=== PATIENT | female | born 1995 | race American Indian/Alaskan Native ===

== ENCOUNTER 2017-10-10 16:35 | Inpatient (IN) | payer MEDICAID, OTHER ==
[2017-10-10] MEDS ORDERED: NACL 0.9% 1000 ML 1,000 ML IV ONE ×3 (17:02→22:48)
[2017-10-10 17:37] LABS: Basophils % (Auto) 0.3 % (0.0-1.8); Eosinophils % (Auto) 0.3 % (0.0-4.3); Hematocrit 38.9 % (30.3-42.9); Hemoglobin 12.2 gm/dl (10.1-14.3); Lymphocytes # (Auto) 0.6 K/mm3 (1.2-5.4); Lymphocytes % (Auto) 6.6 % (13.4-35.0); Mean Corpuscular HGB Conc 32 % (30-34); Monocytes # (Auto) 0.6 K/mm3 (0.0-0.8); Monocytes % (Auto) 6.4 % (0.0-7.3); Platelet Count 181 K/mm3 (140-440); Red Blood Count 5.58 M/mm3 (3.65-5.03); Red Cell Distribution Width 13.7 % (13.2-15.2)
[2017-10-10 17:53] LABS: Alanine Aminotransferase 10 units/L (7-56); Albumin 3.9 g/dL (3.9-5); BUN/Creatinine Ratio 11; Blood Urea Nitrogen 9 mg/dL (7-17); Calcium 9.3 mg/dL (8.4-10.2); Hemolysis Index 0
[2017-10-10 17:54] LABS: Mean Corpuscular Hemoglobin 22 pg (28-32); Mean Corpuscular Volume 70 fl (79-97)
[2017-10-10 19:01] LABS: Bilirubin,Urine NEG (Negative); Blood,Urine MOD (Negative); Color,Urine Yellow (Yellow); Mucus,Urine FEW /HPF
[2017-10-10 19:04] LABS: WBC,Urine > 182.0 /HPF (0.0-6.0)
[2017-10-10 19:05] LABS: HCG Qualitative,Urine Negative (Negative)
[2017-10-10] MEDS ORDERED: ZOFRAN IV ONE (20:37)
[2017-10-10] MEDS ORDERED: SUBLIMAZE IV ONE (20:37)
[2017-10-10] MEDS ORDERED: HumuLIN R IV ONE (20:40)
[2017-10-10] MEDS ORDERED: ROCEPHIN/NS 1 GM/50 ML 1 GM/50 ML BAG IV ONE (21:00)
--- NOTE | 2017-10-10 21:12 | Emergency Department Report ---
HPI - General Chief Complaint: Abdominal Pain Time Seen by Provider: 10/10/17 20:24 - HPI HPI: The patient is a 22-year-old female with significant history of diabetes mellitus type 1, who presents for evaluation of abdominal pain. The patient reports 3 days of abdominal pain, moderate severity, crampy in quality, radiating to the back, associated with 2 days of nausea, and vomiting, nonbilious, nonbloody emesis. The patient denies fever, neck pain, chest pain, cough, dyspnea, chills, night sweats, diarrhea, blood in the stool, dark tarry stool, genital discharge, inability to pass flatus. ED Past Medical Hx - Past Medical History Hx Diabetes: Yes - Social History Smoking Status: Never Smoker - Medications Home Medications: Home Medications Medication Instructions Recorded Confirmed Last Taken Type Insulin Glargine,Hum.rec.anlog 30 units SQ QHS 10/11/17 10/11/17 Unknown History [Lantus] ED Review of Systems ROS: Stated complaint: DIABETIC Other details as noted in HPI Constitutional: denies: fever ENT: denies: throat or neck pain Respiratory: denies: cough, shortness of breath Cardiovascular: denies: chest pain Endocrine: denies unexplained weight loss or gain Gastrointestinal: reports: abdominal pain, nausea Genitourinary: denies: dysuria Musculoskeletal: denies: leg swelling Skin: denies: rash Neurological: denies: headache Hematological/Lymphatic: denies: easy bleeding or easy bruising Psych: denies sadness or hopelessness Physical Exam - Physical Exam Vital Signs: Vital Signs 10/10/17 10/10/17 16:55 20:42 Temperature 99.2 F 100 F H Pulse Rate 111 H 118 H Respiratory 16 16 Rate Blood Pressure 146/91 Blood Pressure 130/82 [Left] O2 Sat by Pulse 97 100 Oximetry Physical Exam: General: well-nourished, well-developed, no acute distress Head: Normocephalic, atraumatic Eyes: normal sclera ENT: Mucous membranes are pale and dry Neck: No neck stiffness, no cervical adenopathy Respiratory: Breath sounds equal bilaterally, no wheezing, rales, or rhonchi Cardio: S1 and S2 present, no murmurs, rubs, gallops, capillary refill is delayed Abdomen: Normoactive bowel sounds, soft abdomen, generalized tenderness to palpation present, no rigidity, no guarding or rebound tenderness Chest WALL/Back: No tenderness to palpation of the chest wall, positive bilateral CVA tenderness with percussion Musc: No pitting edema Skin: No rash Neuro: no facial drooping, normal speech Psych: Normal affect ED Course Vital Signs 10/10/17 10/10/17 16:55 20:42 Temperature 99.2 F 100 F H Pulse Rate 111 H 118 H Respiratory 16 16 Rate Blood Pressure 146/91 Blood Pressure 130/82 [Left] O2 Sat by Pulse 97 100 Oximetry ED Medical Decision Making - Lab Data Result diagrams: 10/10/17 17:24 10/10/17 17:24 - Medical Decision Making The patient was seen and examined by myself. The patient is placed on a clinical research monitor and continuous pulse ox. On initial evaluation, the patient was found to be in no distress, although with significant tachycardia and fever, temperature 102F. The patient given Tylenol for her fever. Evaluation orders are placed. IV access is established and the patient is given 1 L normal saline fluid bolus and Zofran for nausea, and IV fentanyl for pain. Lab results revealed elevated urinalysis WBC 182, leukocyte esterase positive, consistent with acute urinary tract infection. Labs also reveal Elevated glucose of 327, with elevated anion gap, though with normal bicarbonate and pH level, not consistent with DKA. The patient given IV Rocephin for treatment of her urinary tract infection and suspected pyelonephritis as the patient has bilateral flank pain and fever. The patient is given 2 L of additional normal saline fluid bolus for treatment of her sepsis and dehydration. The patient is given IV insulin for treatment of her hyperglycemia. The patient was reevaluated and found to remain with significant tachycardia despite appropriate fluid resuscitation. The on-call hospitalist service was contacted. They agreed to admit the patient for further treatment and close monitoring. The ED admit order was placed. The patient was admitted in guarded condition. Critical care attestation.: If time is entered above; I have spent that time in minutes in the direct care of this critically ill patient, excluding procedure time. ED Disposition Clinical Impression: Acute generalized abdominal pain, Dehydration, Nausea and vomiting in adult, Acute hyperglycemia, Acute pyelonephritis Sepsis Qualifiers: Sepsis type: sepsis due to unspecified organism Qualified Code(s): A41.9 - Sepsis, unspecified organism Disposition: OP ADMIT IP TO THIS HOSP Is pt being admited?: Yes Does the pt Need Aspirin: Yes Condition: Serious Instructions: Abdominal Pain (ED) Referrals: PRIMARY CARE, [Primary Care Provider] - 3-5 Days Time of Disposition: 21:15
[2017-10-10] MEDS ORDERED: TYLENOL PO ONE (22:28)
[2017-10-11] MEDS ORDERED: D50W (25GM) Syringe IV PRN ×3 (00:05→12:21)
[2017-10-11] MEDS ORDERED: ZOFRAN IV PRN (00:09)
[2017-10-11] MEDS ORDERED: NACL 0.9% 1000 ML 1,000 ML IV SCH (01:00)
--- NOTE | 2017-10-11 01:54 | History and Physical Report ---
CHIEF COMPLAINT: Abdominal pain. HISTORY OF PRESENT ILLNESS: The patient is a 23-year-old female who has type 1 diabetes mellitus, presenting with 3 days of abdominal pain, which is cramping in nature, radiating to the back and associated with nausea, vomiting, and also fever with no chills. No history of cough. There is no history of shortness of breath or chest pain. PAST MEDICAL HISTORY: Pertinent for diabetes mellitus. PAST SURGICAL HISTORY: Unremarkable. FAMILY HISTORY: Noncontributory. SOCIAL HISTORY: The patient does not smoke, does not drink alcohol, and does not use illicit drugs. MEDICATIONS: The patient is on Lantus insulin 30 units subQ at bedtime. ALLERGIES: There are no known drug allergies. REVIEW OF SYSTEMS: CONSTITUTIONAL: Fever is present. No chills, no diaphoresis. HEENT: There is no headache or sore throat. CARDIOVASCULAR: There is no chest pain or orthopnea. RESPIRATORY: There is no shortness of breath or cough. GASTROINTESTINAL: Abdominal pain present. Nausea and vomiting present. No diarrhea. No constipation. NEUROLOGICAL: There is no numbness, no dizziness, no altered mental status. MUSCULOSKELETAL: There is no joint pain or swelling. DERMATOLOGICAL: There is no skin rash or itching. GENITOURINARY: There is no dysuria, hematuria, or flank pain. Rest of system review is normal. PHYSICAL EXAMINATION: GENERAL: At the time of exam, the patient was found to be alert, oriented x3 and not in acute distress. VITAL SIGNS: At the initial time of presentation shows temperature of 99.2 degrees Fahrenheit, pulse of 111, respirations of 16, blood pressure 146/91, O2 sat of 97% on room air. HEENT: Show pupils to be equal, round, reactive to light and accommodation. Extraocular muscles are intact. NECK: Supple with no JVD or carotid bruit. CARDIOVASCULAR: Showed normal first and second heart sounds with no gallops or murmurs. RESPIRATORY: Show good air entry on both sides of the lungs with no abnormal breath sounds. GASTROINTESTINAL: Show abdomen to be full, soft, nontender with no organomegaly or rigidity. NEUROLOGICAL: Shows no focal deficit. MUSCULOSKELETAL: Show no joint swelling or tenderness. DERMATOLOGICAL: Show no skin rash. GENITOURINARY: Showing no costovertebral angle tenderness. PERTINENT LABORATORY AND IMAGING STUDIES: The patient has CBC done with normal white count, normal hemoglobin and normal hematocrit with CBC differential showing elevated neutrophil count of 86.4% with no significant band. The patient's ABG showed normal pH with low pCO2 of 30.4, low pO2 of 71, and O2 sat of 94% and this was done on room air. The patient's chemistry showed low sodium of 131, normal potassium, low chloride of 92.5, normal CO2 of 22 with slightly elevated anion gap of 16.5 with high glucose level of 327. Rest of chemistry was unremarkable. Urinalysis shows yellow color, clear urine with high urine wbc of more than 182. High urine leukocyte esterase in large quantity, and also high urine WBC of 21, positive urine ketone. IMAGING STUDIES: No imaging studies were reported on the patient at this time. DIAGNOSES: 1. Urinary tract infection. 2. Sepsis. 3. Hyperglycemia. PLAN: 1. The patient will be on normal saline at 150 mL an hour. 2. The patient will be on IV ceftriaxone 1 gram daily for treatment of UTI and sepsis. 3. The patient will be on Accu-Chek before meals and at bedtime, followed by moderate dose sliding scale using regular insulin SubQ. 4. The patient will be on IV Zofran 4 mg every 6 hours for nausea and vomiting. The patient will be on Tylenol 650 mg by mouth every 4 hours for fever and headache. 5. The patient will be on heparin 5000 units subQ q.12 hours for DVT prophylaxis. 6. The patient will be on consistent carbohydrate diet. 7. The patient will have basic metabolic panel checked q.4 hours' time. JOB# [id number] OCN/NTS MTDD
[2017-10-11 04:22] LABS: BUN/Creatinine Ratio 10; Blood Urea Nitrogen 9 mg/dL (7-17); Calcium 7.7 mg/dL (8.4-10.2); Hemolysis Index 0
[2017-10-11] MEDS ORDERED: NACL 0.9% 1000 ML 1,000 ML IV ONE (05:10)
[2017-10-11] MEDS ORDERED: HumuLIN R 100 UNITS in NACL 0.9% 99 ML IV SCH ×2 (06:00→13:00)
[2017-10-11 06:17] LABS: BUN/Creatinine Ratio 11; Blood Urea Nitrogen 10 mg/dL (7-17); Calcium 8.2 mg/dL (8.4-10.2); Hemolysis Index 0
[2017-10-11] MEDS ORDERED: HumuLIN R SUB-Q SCH ×2 (07:30→22:00)
[2017-10-11 08:27] LABS: BUN/Creatinine Ratio 11; Blood Urea Nitrogen 9 mg/dL (7-17); Calcium 7.9 mg/dL (8.4-10.2); Hemolysis Index 1
[2017-10-11 10:21] LABS: BUN/Creatinine Ratio 10; Blood Urea Nitrogen 9 mg/dL (7-17); Calcium 8.1 mg/dL (8.4-10.2); Hemolysis Index 0
[2017-10-11] MEDS ORDERED: MAGNESIUM SULFATE 4GM/100ML 4 GM/100 ML BAG IV ONE (11:00)
[2017-10-11] MEDS: D5W/0.45% NACL/KCL 20 MEQ 20 MEQ/1,000 ML BAG IV SCH (11:01)
[2017-10-11] MEDS: HEPARIN SUB-Q SCH ×2 (11:02→23:56)
--- NOTE | 2017-10-11 11:32 | History and Physical Report ---
History of Present Illness Date of examination: 10/11/17 Date of admission: 10/11/17 00:03 Chief complaint: flank pain History of present illness: DKA. The pt will be continued on the DKA pathway until AG has closed and BG have normalized. Cont. IVF hydration and IV insulin. Sepsis. Cont IV Abx and f/u cx and trend lactic acid levels UTI, Right flank pain. Cont IV abx. Check CT A/P. DM type I, uncontrolled. Pt. will be transitioned to her home regimen of Lantus 30 units qhs and Sliding scale during the day once DKA resoved Medications and Allergies Allergies Allergy/AdvReac Type Severity Reaction Status Date / Time No Known Allergies Allergy Unverified 10/10/17 17:02 Home Medications Medication Instructions Recorded Confirmed Last Taken Type Insulin Glargine,Hum.rec.anlog 30 units SQ QHS 10/11/17 10/11/17 Unknown History [Lantus] Active Meds: Active Medications Dextrose (D50w (25gm) Syringe) 0 ml IV PRN PRN PRN Reason: Hypoglycemia Heparin Sodium (Porcine) (Heparin) 5,000 unit SUB-Q Q12HR MACI Last Admin: 10/11/17 11:02 Dose: 5,000 unit Ceftriaxone Sodium (Rocephin/Ns 1 Gm/50 Ml) 1 gm in 50 mls @ 100 mls/hr IV Q24HR MACI; Protocol Sodium Chloride (Nacl 0.9% 1000 Ml) 1,000 mls @ 150 mls/hr IV DIRECT MACI Last Admin: 10/11/17 02:36 Dose: 150 mls/hr Potassium Chloride/Dextrose/Sod Cl (D5w/0.45% Nacl/Kcl 20 Meq) 20 meq in 1,000 mls @ 125 mls/hr IV DIRECT MACI Last Admin: 10/11/17 11:01 Dose: 125 mls/hr Magnesium Sulfate (Magnesium Sulfate 4gm/100ml) 4 gm in 100 mls @ 25 mls/hr IV ONCE ONE Stop: 10/11/17 14:59 Ondansetron HCl (Zofran) 4 mg IV Q6H PRN PRN Reason: Nausea And Vomiting Exam - Constitutional Vitals: Temp Pulse Resp BP Pulse Ox 98.5 F 103 H 16 101/56 99 10/11/17 08:00 10/11/17 05:18 07/16/18 05:18 10/11/17 05:18 10/11/17 05:18 Results - Labs CBC & Chem 7: 10/10/17 17:24 10/11/17 Unknown Labs: Laboratory Last Values WBC 8.7 K/mm3 (4.5-11.0) 10/10/17 17:24 RBC 5.58 M/mm3 (3.65-5.03) H 10/10/17 17:24 Hgb 12.2 gm/dl (10.1-14.3) 10/10/17 17:24 Hct 38.9 % (30.3-42.9) 10/10/17 17:24 MCV 70 fl (79-97) L 10/10/17 17:24 MCH 22 pg (28-32) L 10/10/17 17:24 MCHC 32 % (30-34) 10/10/17 17:24 RDW 13.7 % (13.2-15.2) 10/10/17 17:24 Plt Count 181 K/mm3 (140-440) 10/10/17 17:24 Lymph % (Auto) 6.6 % (13.4-35.0) L 10/10/17 17:24 [place] % (Auto) 6.4 % (0.0-7.3) 10/10/17 17:24 Eos % (Auto) 0.3 % (0.0-4.3) 10/10/17 17:24 Baso % (Auto) 0.3 % (0.0-1.8) 10/10/17 17:24 Lymph # 0.6 K/mm3 (1.2-5.4) L 10/10/17 17:24 [place] # 0.6 K/mm3 (0.0-0.8) 10/10/17 17:24 Eos # 0.0 K/mm3 (0.0-0.4) 10/10/17 17:24 Baso # 0.0 K/mm3 (0.0-0.1) 10/10/17 17:24 Seg Neutrophils % 86.4 % (40.0-70.0) H 10/10/17 17:24 Seg Neutrophils # 7.5 K/mm3 (1.8-7.7) 10/10/17 17:24 POC ABG pH 7.396 (7.35-7.45) 10/10/17 22:14 POC ABG pCO2 30.4 (35-45) L 10/10/17 22:14 POC ABG pO2 71 (80-105) L 10/10/17 22:14 POC ABG HCO3 18.7 10/10/17 22:14 POC ABG Total CO2 20 10/10/17 22:14 POC ABG O2 Sat 94 10/10/17 22:14 POC ABG Base Excess -6 10/10/17 22:14 FiO2 21 % 10/10/17 22:14 Sodium 135 mmol/L (137-145) L 10/11/17 Unknown Potassium 4.4 mmol/L (3.6-5.0) 10/11/17 Unknown Chloride 100.6 mmol/L (98-107) 10/11/17 Unknown Carbon Dioxide 18 mmol/L (22-30) L 10/11/17 Unknown Anion Gap 21 mmol/L 10/11/17 Unknown BUN 9 mg/dL (7-17) 10/11/17 Unknown Creatinine 0.9 mg/dL (0.7-1.2) 10/11/17 Unknown Estimated GFR > 60 ml/min 10/11/17 Unknown BUN/Creatinine Ratio 10 % 10/11/17 Unknown Glucose 349 mg/dL (65-100) H 10/11/17 Unknown POC Glucose 315 (70-105) H 10/11/17 10:11 Lactic Acid 1.60 mmol/L (0.7-2.0) 10/11/17 00:01 Calcium 8.1 mg/dL (8.4-10.2) L 10/11/17 Unknown Phosphorus 3.30 mg/dL (2.5-4.5) 10/11/17 05:38 Magnesium 1.40 mg/dL (1.7-2.3) L 10/11/17 05:38 Total Bilirubin 0.70 mg/dL (0.1-1.2) 10/10/17 17:24 AST 13 units/L (5-40) 10/10/17 17:24 ALT 10 units/L (7-56) 10/10/17 17:24 Alkaline Phosphatase 103 units/L (35-129) 10/10/17 17:24 Total Protein 7.2 g/dL (6.3-8.2) 10/10/17 17:24 Albumin 3.9 g/dL (3.9-5) 10/10/17 17:24 Albumin/Globulin Ratio 1.2 % 10/10/17 17:24 Urine Color Yellow (Yellow) 10/10/17 18:48 Urine Turbidity Clear (Clear) 10/10/17 18:48 Urine pH 6.0 (5.0-7.0) 10/10/17 18:48 Ur Specific [place] 1.014 (1.003-1.030) 10/10/17 18:48 Urine Protein 100 mg/dl mg/dL (Negative) 10/10/17 18:48 Urine Glucose (UA) >=500 mg/dL (Negative) 10/10/17 18:48 Urine Ketones 80 mg/dL (Negative) 10/10/17 18:48 Urine Blood Mod (Negative) 10/10/17 18:48 Urine Nitrite Neg (Negative) 10/10/17 18:48 Urine Bilirubin Neg (Negative) 10/10/17 18:48 Urine Urobilinogen 2.0 mg/dL (<2.0) 10/10/17 18:48 Ur Leukocyte Esterase Lg (Negative) 10/10/17 18:48 Urine WBC (Auto) > 182.0 /HPF (0.0-6.0) H 10/10/17 18:48 Urine RBC (Auto) 21.0 /HPF (0.0-6.0) 10/10/17 18:48 U Epithel Cells (Auto) 1.0 /HPF (0-13.0) 10/10/17 18:48 Urine WBC Clumps 2+ /HPF 10/10/17 18:48 Urine Mucus Few /HPF 10/10/17 18:48 Urine HCG, Qual Negative (Negative) 10/10/17 18:48
[2017-10-11] MEDS: ROCEPHIN/NS 1 GM/50 ML 1 GM/50 ML BAG IV SCH (12:18)
[2017-10-11 14:36] LABS: BUN/Creatinine Ratio 11; Blood Urea Nitrogen 8 mg/dL (7-17); Calcium 8.3 mg/dL (8.4-10.2); Hemolysis Index 0
[2017-10-11 15:11] LABS: BUN/Creatinine Ratio 11; Blood Urea Nitrogen 8 mg/dL (7-17); Calcium 8.3 mg/dL (8.4-10.2); Hemolysis Index 2
[2017-10-11 16:04] LABS: BUN/Creatinine Ratio 12; Blood Urea Nitrogen 7 mg/dL (7-17); Calcium 8.3 mg/dL (8.4-10.2); Hemolysis Index 9
--- NOTE | 2017-10-11 16:32 | Consultation ---
History of Present Illness Consult date: 10/11/17 Requesting physician: SONIA THOMAS Reason for consult: other (DKA) History of present illness: PULMONARY/CCM CONSULT NOTE (Full dictation # [id number]) Please see dictated notes for full details Medications and Allergies Allergies Allergy/AdvReac Type Severity Reaction Status Date / Time No Known Allergies Allergy Unverified 10/10/17 17:02 Home Medications Medication Instructions Recorded Confirmed Last Taken Type Insulin Glargine,Hum.rec.anlog 30 units SQ QHS 10/11/17 10/11/17 Unknown History [Lantus] Diabetic Supplies,Miscell [Enlite 1 each MC TID #1 miscell 10/13/17 Unknown Rx Serter] Insulin NPH/Regular [Novolin 70/30] 30 unit SQ DAILY #3 vial 10/13/17 Unknown Rx Levofloxacin [Levaquin TAB] 500 mg PO QDAY #3 tablet 10/13/17 Unknown Rx Active Meds: Active Medications Dextrose (D50w (25gm) Syringe) 0 ml IV PRN PRN PRN Reason: Hypoglycemia Dextrose (D50w (25gm) Syringe) 0 ml IV PRN PRN PRN Reason: Hypoglycemia Heparin Sodium (Porcine) (Heparin) 5,000 unit SUB-Q Q12HR MACI Last Admin: 10/11/17 11:02 Dose: 5,000 unit Ceftriaxone Sodium (Rocephin/Ns 1 Gm/50 Ml) 1 gm in 50 mls @ 100 mls/hr IV Q24HR MACI; Protocol Last Admin: 10/11/17 12:18 Dose: 100 mls/hr Sodium Chloride (Nacl 0.9% 1000 Ml) 1,000 mls @ 150 mls/hr IV DIRECT MACI Last Admin: 10/11/17 02:36 Dose: 150 mls/hr Potassium Chloride/Dextrose/Sod Cl (D5w/0.45% Nacl/Kcl 20 Meq) 20 meq in 1,000 mls @ 125 mls/hr IV DIRECT MACI Last Admin: 10/11/17 11:01 Dose: 125 mls/hr Insulin Human Regular 100 (units/ Sodium Chloride) 100 mls @ 1 mls/hr IV TITR MACI; Protocol Last Titration: 10/11/17 15:24 Dose: 5 units/hr, 5 mls/hr Ondansetron HCl (Zofran) 4 mg IV Q6H PRN PRN Reason: Nausea And Vomiting Physical Examination Vital signs: Vital Signs Temp Pulse Resp BP Pulse Ox 99.2 F 111 H 16 146/91 97 10/10/17 16:55 10/10/17 16:55 10/10/17 16:55 10/10/17 16:55 10/10/17 16:55 Results - Laboratory Findings CBC and BMP: 10/12/17 09:57 10/13/17 05:41 ABG POC ABG pH 7.396 (7.35-7.45) 10/10/17 22:14 POC ABG pCO2 30.4 (35-45) L 10/10/17 22:14 POC ABG pO2 71 (80-105) L 10/10/17 22:14 POC ABG HCO3 18.7 10/10/17 22:14 POC ABG Total CO2 20 10/10/17 22:14 POC ABG O2 Sat 94 10/10/17 22:14 Abnormal lab findings: Abnormal Labs 10/10/17 10/10/17 10/10/17 17:02 17:24 17:24 RBC 5.58 H MCV 70 L MCH 22 L Lymph % (Auto) 6.6 L Lymph # 0.6 L Seg Neutrophils % 86.4 H POC ABG pCO2 POC ABG pO2 Sodium 131 L Chloride 92.5 L Carbon Dioxide Creatinine Glucose 327 H POC Glucose 279 H Calcium Magnesium Urine WBC (Auto) 10/10/17 10/10/17 10/10/17 18:48 21:01 22:14 RBC MCV MCH Lymph % (Auto) Lymph # Seg Neutrophils % POC ABG pCO2 30.4 L POC ABG pO2 71 L Sodium Chloride Carbon Dioxide Creatinine Glucose POC Glucose 322 H Calcium Magnesium Urine WBC (Auto) > 182.0 H 10/10/17 10/11/17 10/11/17 22:46 03:53 05:38 RBC MCV MCH Lymph % (Auto) Lymph # Seg Neutrophils % POC ABG pCO2 POC ABG pO2 Sodium 136 L Chloride Carbon Dioxide 18 L Creatinine Glucose 420 H POC Glucose 256 H Calcium 7.7 L D Magnesium 1.40 L Urine WBC (Auto) 10/11/17 10/11/17 10/11/17 05:38 07:45 10:11 RBC MCV MCH Lymph % (Auto) Lymph # Seg Neutrophils % POC ABG pCO2 POC ABG pO2 Sodium 133 L 135 L Chloride 97.2 L Carbon Dioxide 17 L 16 L Creatinine Glucose 426 H 382 H POC Glucose 315 H Calcium 8.2 L 7.9 L Magnesium Urine WBC (Auto) 10/11/17 10/11/17 10/11/17 13:57 13:57 14:04 RBC MCV MCH Lymph % (Auto) Lymph # Seg Neutrophils % POC ABG pCO2 POC ABG pO2 Sodium Chloride Carbon Dioxide 19 L 18 L Creatinine Glucose 287 H 284 H POC Glucose Calcium 8.3 L 8.3 L Magnesium 1.60 L Urine WBC (Auto) 10/11/17 10/11/17 15:15 Unknown RBC MCV MCH Lymph % (Auto) Lymph # Seg Neutrophils % POC ABG pCO2 POC ABG pO2 Sodium 135 L Chloride Carbon Dioxide 18 L 18 L Creatinine 0.6 L Glucose 247 H 349 H POC Glucose Calcium 8.3 L 8.1 L Magnesium Urine WBC (Auto)
--- NOTE | 2017-10-11 18:48 | Cat Scan Report ---
FINAL REPORT EXAM: CT ABDOMEN PELVIS WO CON HISTORY: UTI, Right flank pain TECHNIQUE: Unenhanced stone protocol CT of the abdomen and pelvis at 2.5 millimeter axial increments. Coronal and sagittal reconstruction was also performed. PRIORS: None. FINDINGS: There is no evidence for renal calculi or hydronephrosis. No evidence for ureteral or bladder calculus is seen. No evidence for renal or bladder mass is noted. 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 Otherwise, within the limits of a noncontrast exam, the liver, spleen, pancreas, gallbladder, and adrenal glands are unremarkable. No evidence for retroperitoneal or pelvic lymphadenopathy is seen. The bowel loops have normal caliber. No fluid collection, inflammatory change, or free air is seen within the abdomen or pelvis. The appendix is normal. Within the pelvis, the uterus is normal. Images through the upper abdomen include the lung bases which are expanded and clear. Bony structures show no focal abnormalities. IMPRESSION: 1. No evidence for renal calculi or renal obstruction. 2. 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
[2017-10-11 20:46] LABS: BUN/Creatinine Ratio 12; Blood Urea Nitrogen 7 mg/dL (7-17); Calcium 8.5 mg/dL (8.4-10.2); Hemolysis Index 87
[2017-10-11 21:08] LABS: BUN/Creatinine Ratio 9; Blood Urea Nitrogen 6 mg/dL (7-17); Calcium 8.8 mg/dL (8.4-10.2); Hemolysis Index 10
[2017-10-11] MEDS ORDERED: TYLENOL PO PRN (22:08)
[2017-10-11] MEDS: PERCOCET 5/325 PO PRN (23:55)
[2017-10-12] MEDS: D5W/0.45% NACL/KCL 20 MEQ 20 MEQ/1,000 ML BAG IV SCH ×3 (00:05→22:15)
[2017-10-12] MEDS: PERCOCET 5/325 PO PRN ×3 (07:45→23:37)
[2017-10-12 08:13] LABS: BUN/Creatinine Ratio 7; Blood Urea Nitrogen 4 mg/dL (7-17); Calcium 8.5 mg/dL (8.4-10.2); Hemolysis Index 66
[2017-10-12] MEDS: HEPARIN SUB-Q SCH ×2 (09:50→22:16)
[2017-10-12] MEDS: ROCEPHIN/NS 1 GM/50 ML 1 GM/50 ML BAG IV SCH (09:58)
[2017-10-12 11:11] LABS: Basophils % (Auto) 0.5 % (0.0-1.8); Eosinophils # (Auto) 0.1 K/mm3 (0.0-0.4); Eosinophils % (Auto) 1.8 % (0.0-4.3); Hematocrit 32.9 % (30.3-42.9); Hemoglobin 10.4 gm/dl (10.1-14.3); Lymphocytes # (Auto) 0.9 K/mm3 (1.2-5.4); Lymphocytes % (Auto) 13.7 % (13.4-35.0); Mean Corpuscular HGB Conc 32 % (30-34); Monocytes # (Auto) 0.7 K/mm3 (0.0-0.8); Monocytes % (Auto) 10.2 % (0.0-7.3); Platelet Count 156 K/mm3 (140-440); Red Blood Count 4.76 M/mm3 (3.65-5.03); Red Cell Distribution Width 13.9 % (13.2-15.2)
[2017-10-12 11:14] LABS: Mean Corpuscular Hemoglobin 22 pg (28-32); Mean Corpuscular Volume 69 fl (79-97)
[2017-10-12 11:27] LABS: BUN/Creatinine Ratio 8; Blood Urea Nitrogen 4 mg/dL (7-17); Calcium 8.5 mg/dL (8.4-10.2); Hemolysis Index 15
[2017-10-12] MEDS ORDERED: D50W (25GM) Syringe IV PRN (13:27)
--- NOTE | 2017-10-12 13:36 | Progress Note ---
Assessment and Plan Assessment and plan: 22-year-old -[place] female with past medical history significant for insulin-dependent diabetes mellitus presented to the emergency department for the complaints of abdominal cough, nausea, vomiting, and fever. Patient has been run out of her regular insulin. He was admitted to ICU for the management of DKA. Patient was managed according to DKA protocol and resolved. Currently patient is on high-dose sliding scale insulin and home dose of 30 units of Lantus. Patient was treated with IV fluids. Patient started on ADA diet Patient was septic and admitted to UTI and is being treated with IV ceftriaxone. Fever resolved. Patient is on heparin for DVT prophylaxis. Disposition -Transfer to the medical floor. - Possible DC tomorrow. History Interval history: Patient was seen and evaluated this morning, patient didn't have any complaints. Patient was alert and oriented Hospitalist Physical - Physical exam Narrative exam: Not in cardiopulmonary distress. The patient is obese. Vital signs as documented. Head exam is unremarkable. No scleral icterus . Neck is without jugular venous distension, thyromegaly, or carotid bruits. Lungs are clear to auscultation. Cardiac exam reveals regular rate and Rhythm. First and second heart sounds normal. No murmurs, rubs or gallops. Abdominal exam reveals normal bowel sounds, no masses, no organomegaly and no aortic enlargement. Extremities are nonedematous and both femoral and pedal pulses are normal. [employer]: Alert and oriented 3. No focal weakness. - Constitutional Vitals: Temp Pulse Resp BP Pulse Ox 99.4 F 88 10 L 123/59 99 10/12/17 08:00 10/12/17 10:00 10/12/17 10:00 10/12/17 10:00 10/12/17 10:00 Results - Labs CBC & Chem 7: 10/12/17 09:57 10/12/17 09:57 Labs: Laboratory Last Values WBC 6.6 K/mm3 (4.5-11.0) 10/12/17 09:57 RBC 4.76 M/mm3 (3.65-5.03) 10/12/17 09:57 Hgb 10.4 gm/dl (10.1-14.3) 10/12/17 09:57 Hct 32.9 % (30.3-42.9) D 10/12/17 09:57 MCV 69 fl (79-97) L 10/12/17 09:57 MCH 22 pg (28-32) L 10/12/17 09:57 MCHC 32 % (30-34) 10/12/17 09:57 RDW 13.9 % (13.2-15.2) 10/12/17 09:57 Plt Count 156 K/mm3 (140-440) 10/12/17 09:57 Lymph % (Auto) 13.7 % (13.4-35.0) 10/12/17 09:57 [place] % (Auto) 10.2 % (0.0-7.3) H 10/12/17 09:57 Eos % (Auto) 1.8 % (0.0-4.3) 10/12/17 09:57 Baso % (Auto) 0.5 % (0.0-1.8) 10/12/17 09:57 Lymph # 0.9 K/mm3 (1.2-5.4) L 10/12/17 09:57 [place] # 0.7 K/mm3 (0.0-0.8) 10/12/17 09:57 Eos # 0.1 K/mm3 (0.0-0.4) 10/12/17 09:57 Baso # 0.0 K/mm3 (0.0-0.1) 10/12/17 09:57 Seg Neutrophils % 73.8 % (40.0-70.0) H 10/12/17 09:57 Seg Neutrophils # 4.8 K/mm3 (1.8-7.7) 10/12/17 09:57 POC ABG pH 7.396 (7.35-7.45) 10/10/17 22:14 POC ABG pCO2 30.4 (35-45) L 10/10/17 22:14 POC ABG pO2 71 (80-105) L 10/10/17 22:14 POC ABG HCO3 18.7 10/10/17 22:14 POC ABG Total CO2 20 10/10/17 22:14 POC ABG O2 Sat 94 10/10/17 22:14 POC ABG Base Excess -6 10/10/17 22:14 FiO2 21 % 10/10/17 22:14 Sodium 135 mmol/L (137-145) L 10/12/17 09:57 Potassium 3.7 mmol/L (3.6-5.0) 10/12/17 09:57 Chloride 102.1 mmol/L (98-107) 10/12/17 09:57 Carbon Dioxide 20 mmol/L (22-30) L 10/12/17 09:57 Anion Gap 17 mmol/L 10/12/17 09:57 BUN 4 mg/dL (7-17) L 10/12/17 09:57 Creatinine 0.5 mg/dL (0.7-1.2) L 10/12/17 09:57 Estimated GFR > 60 ml/min 10/12/17 09:57 BUN/Creatinine Ratio 8 % 10/12/17 09:57 Glucose 150 mg/dL (65-100) H 10/12/17 09:57 POC Glucose 139 (70-105) H 10/12/17 12:31 Lactic Acid 1.60 mmol/L (0.7-2.0) 10/11/17 00:01 Calcium 8.5 mg/dL (8.4-10.2) 10/12/17 09:57 Phosphorus 2.50 mg/dL (2.5-4.5) D 10/11/17 13:57 Magnesium 1.60 mg/dL (1.7-2.3) L 10/11/17 13:57 Total Bilirubin 0.70 mg/dL (0.1-1.2) 10/10/17 17:24 AST 13 units/L (5-40) 10/10/17 17:24 ALT 10 units/L (7-56) 10/10/17 17:24 Alkaline Phosphatase 103 units/L (35-129) 10/10/17 17:24 Total Protein 7.2 g/dL (6.3-8.2) 10/10/17 17:24 Albumin 3.9 g/dL (3.9-5) 10/10/17 17:24 Albumin/Globulin Ratio 1.2 % 10/10/17 17:24 Urine Color Yellow (Yellow) 10/10/17 18:48 Urine Turbidity Clear (Clear) 10/10/17 18:48 Urine pH 6.0 (5.0-7.0) 10/10/17 18:48 Ur Specific [place] 1.014 (1.003-1.030) 10/10/17 18:48 Urine Protein 100 mg/dl mg/dL (Negative) 10/10/17 18:48 Urine Glucose (UA) >=500 mg/dL (Negative) 10/10/17 18:48 Urine Ketones 80 mg/dL (Negative) 10/10/17 18:48 Urine Blood Mod (Negative) 10/10/17 18:48 Urine Nitrite Neg (Negative) 10/10/17 18:48 Urine Bilirubin Neg (Negative) 10/10/17 18:48 Urine Urobilinogen 2.0 mg/dL (<2.0) 10/10/17 18:48 Ur Leukocyte Esterase Lg (Negative) 10/10/17 18:48 Urine WBC (Auto) > 182.0 /HPF (0.0-6.0) H 10/10/17 18:48 Urine RBC (Auto) 21.0 /HPF (0.0-6.0) 10/10/17 18:48 U Epithel Cells (Auto) 1.0 /HPF (0-13.0) 10/10/17 18:48 Urine WBC Clumps 2+ /HPF 10/10/17 18:48 Urine Mucus Few /HPF 10/10/17 18:48 Urine HCG, Qual Negative (Negative) 10/10/17 18:48
[2017-10-12 14:34] LABS: BUN/Creatinine Ratio 7; Blood Urea Nitrogen 4 mg/dL (7-17); Calcium 8.4 mg/dL (8.4-10.2); Hemolysis Index 4
[2017-10-12] MEDS: HumaLOG SUB-Q SCH ×2 (16:59→23:37)
[2017-10-12] MEDS ORDERED: LANTUS SUB-Q SCH (22:00)
[2017-10-13 06:52] LABS: BUN/Creatinine Ratio 7; Blood Urea Nitrogen 4 mg/dL (7-17); Calcium 8.2 mg/dL (8.4-10.2); Hemolysis Index 0
[2017-10-13] MEDS: D5W/0.45% NACL/KCL 20 MEQ 20 MEQ/1,000 ML BAG IV SCH (08:26)
[2017-10-13] MEDS: HumaLOG SUB-Q SCH ×3 (08:27→16:30)
[2017-10-13] MEDS: PERCOCET 5/325 PO PRN (08:32)
--- NOTE | 2017-10-13 10:10 | Progress Note ---
Subjective Date of service: 10/13/17 Principal diagnosis: DKA Objective Vital Signs - 12hr 10/12/17 23:21 Temperature 98.1 F Pulse Rate 78 Respiratory 18 Rate Blood Pressure 149/85 O2 Sat by Pulse 100 Oximetry CBC and BMP: 10/12/17 09:57 10/13/17 05:41 ABG, PT/INR, D-dimer: ABG POC ABG pH 7.396 (7.35-7.45) 10/10/17 22:14 POC ABG pCO2 30.4 (35-45) L 10/10/17 22:14 POC ABG pO2 71 (80-105) L 10/10/17 22:14 POC ABG HCO3 18.7 10/10/17 22:14 POC ABG Total CO2 20 10/10/17 22:14 POC ABG O2 Sat 94 10/10/17 22:14 Abnormal lab findings: Abnormal Labs 10/10/17 10/10/17 10/10/17 17:02 17:24 17:24 RBC 5.58 H MCV 70 L MCH 22 L Lymph % (Auto) 6.6 L [place] % (Auto) Lymph # 0.6 L Seg Neutrophils % 86.4 H POC ABG pCO2 POC ABG pO2 Sodium 131 L Potassium Chloride 92.5 L Carbon Dioxide BUN Creatinine Glucose 327 H POC Glucose 279 H Calcium Magnesium Urine WBC (Auto) 10/10/17 10/10/17 10/10/17 18:48 21:01 22:14 RBC MCV MCH Lymph % (Auto) [place] % (Auto) Lymph # Seg Neutrophils % POC ABG pCO2 30.4 L POC ABG pO2 71 L Sodium Potassium Chloride Carbon Dioxide BUN Creatinine Glucose POC Glucose 322 H Calcium Magnesium Urine WBC (Auto) > 182.0 H 10/10/17 10/11/17 10/11/17 22:46 03:53 05:38 RBC MCV MCH Lymph % (Auto) [place] % (Auto) Lymph # Seg Neutrophils % POC ABG pCO2 POC ABG pO2 Sodium 136 L Potassium Chloride Carbon Dioxide 18 L BUN Creatinine Glucose 420 H POC Glucose 256 H Calcium 7.7 L D Magnesium 1.40 L Urine WBC (Auto) 10/11/17 10/11/17 10/11/17 05:38 07:45 10:11 RBC MCV MCH Lymph % (Auto) [place] % (Auto) Lymph # Seg Neutrophils % POC ABG pCO2 POC ABG pO2 Sodium 133 L 135 L Potassium Chloride 97.2 L Carbon Dioxide 17 L 16 L BUN Creatinine Glucose 426 H 382 H POC Glucose 315 H Calcium 8.2 L 7.9 L Magnesium Urine WBC (Auto) 10/11/17 10/11/17 10/11/17 12:17 13:57 13:57 RBC MCV MCH Lymph % (Auto) [place] % (Auto) Lymph # Seg Neutrophils % POC ABG pCO2 POC ABG pO2 Sodium Potassium Chloride Carbon Dioxide 19 L BUN Creatinine Glucose 287 H POC Glucose 331 H Calcium 8.3 L Magnesium 1.60 L Urine WBC (Auto) 10/11/17 10/11/17 10/11/17 14:04 14:20 15:15 RBC MCV MCH Lymph % (Auto) [place] % (Auto) Lymph # Seg Neutrophils % POC ABG pCO2 POC ABG pO2 Sodium Potassium Chloride Carbon Dioxide 18 L 18 L BUN Creatinine 0.6 L Glucose 284 H 247 H POC Glucose 268 H Calcium 8.3 L 8.3 L Magnesium Urine WBC (Auto) 10/11/17 10/11/17 10/11/17 15:26 16:47 18:20 RBC MCV MCH Lymph % (Auto) [place] % (Auto) Lymph # Seg Neutrophils % POC ABG pCO2 POC ABG pO2 Sodium Potassium Chloride Carbon Dioxide BUN Creatinine Glucose POC Glucose 265 H 157 H 135 H Calcium Magnesium Urine WBC (Auto) 10/11/17 10/11/17 10/11/17 18:39 19:44 20:24 RBC MCV MCH Lymph % (Auto) [place] % (Auto) Lymph # Seg Neutrophils % POC ABG pCO2 POC ABG pO2 Sodium Potassium 3.5 L Chloride Carbon Dioxide 19 L 19 L BUN 6 L Creatinine 0.6 L Glucose 125 H 147 H POC Glucose 156 H Calcium Magnesium Urine WBC (Auto) 10/11/17 10/11/17 10/11/17 20:51 22:26 22:59 RBC MCV MCH Lymph % (Auto) [place] % (Auto) Lymph # Seg Neutrophils % POC ABG pCO2 POC ABG pO2 Sodium Potassium Chloride Carbon Dioxide BUN Creatinine Glucose POC Glucose 152 H 176 H 186 H Calcium Magnesium Urine WBC (Auto) 10/11/17 10/12/17 10/12/17 Unknown 00:43 02:13 RBC MCV MCH Lymph % (Auto) [place] % (Auto) Lymph # Seg Neutrophils % POC ABG pCO2 POC ABG pO2 Sodium 135 L Potassium Chloride Carbon Dioxide 18 L BUN Creatinine Glucose 349 H POC Glucose 129 H 155 H Calcium 8.1 L Magnesium Urine WBC (Auto) 10/12/17 10/12/17 10/12/17 04:34 06:09 07:14 RBC MCV MCH Lymph % (Auto) [place] % (Auto) Lymph # Seg Neutrophils % POC ABG pCO2 POC ABG pO2 Sodium 134 L Potassium Chloride Carbon Dioxide 17 L BUN 4 L Creatinine 0.6 L Glucose 114 H POC Glucose 150 H 135 H Calcium Magnesium Urine WBC (Auto) 10/12/17 10/12/17 10/12/17 07:21 08:38 09:49 RBC MCV MCH Lymph % (Auto) [place] % (Auto) Lymph # Seg Neutrophils % POC ABG pCO2 POC ABG pO2 Sodium Potassium Chloride Carbon Dioxide BUN Creatinine Glucose POC Glucose 117 H 145 H 177 H Calcium Magnesium Urine WBC (Auto) 10/12/17 10/12/17 10/12/17 09:57 09:57 10:33 RBC MCV 69 L MCH 22 L Lymph % (Auto) [place] % (Auto) 10.2 H Lymph # 0.9 L Seg Neutrophils % 73.8 H POC ABG pCO2 POC ABG pO2 Sodium 135 L Potassium Chloride Carbon Dioxide 20 L BUN 4 L Creatinine 0.5 L Glucose 150 H POC Glucose 167 H Calcium Magnesium Urine WBC (Auto) 10/12/17 10/12/17 10/12/17 11:37 12:31 13:36 RBC MCV MCH Lymph % (Auto) [place] % (Auto) Lymph # Seg Neutrophils % POC ABG pCO2 POC ABG pO2 Sodium 136 L Potassium Chloride Carbon Dioxide 20 L BUN 4 L Creatinine 0.6 L Glucose 130 H POC Glucose 148 H 139 H Calcium Magnesium Urine WBC (Auto) 10/12/17 10/12/17 10/12/17 14:06 16:48 21:19 RBC MCV MCH Lymph % (Auto) [place] % (Auto) Lymph # Seg Neutrophils % POC ABG pCO2 POC ABG pO2 Sodium Potassium Chloride Carbon Dioxide BUN Creatinine Glucose POC Glucose 144 H 202 H 277 H Calcium Magnesium Urine WBC (Auto) 10/13/17 10/13/17 05:41 08:17 RBC MCV MCH Lymph % (Auto) [place] % (Auto) Lymph # Seg Neutrophils % POC ABG pCO2 POC ABG pO2 Sodium 135 L Potassium Chloride Carbon Dioxide 21 L BUN 4 L Creatinine 0.6 L Glucose 312 H POC Glucose 279 H Calcium 8.2 L Magnesium Urine WBC (Auto)
[2017-10-13] MEDS: ROCEPHIN/NS 1 GM/50 ML 1 GM/50 ML BAG IV SCH (10:20)
[2017-10-13] MEDS: HEPARIN SUB-Q SCH (10:20)
[2017-10-13 11:53] VITALS: BP 133/73
--- NOTE | 2017-10-13 13:36 | Discharge Summary ---
Providers - Providers Date of Admission: 10/11/17 00:03 Date of discharge: 10/13/17 Attending physician: SARA GUZMAN MD 10/11/17 05:10 Consult to Dietitian/Nutrition [CONS] Routine Physician Instructions: Reason For Exam: DKA Reason for Consult: Nutrition Recommendations Reason for Consult: Diet education 10/11/17 05:13 Consult to Physician [CONS] Routine Comment: Consulting Provider: RAFFI CLARKE Physician Instructions: Reason For Exam: DKA IN NEED OF ICU ADMISSION FOR INSULIN DRIP Primary care physician: RECORDAK OPERATOR Hospitalization Reason for admission: DKA, UTI Condition: Stable Pertinent studies: CT abdomen and pelvis; no acute abnormality identified. Hospital course: 22 y/o AAF with past medical history significant for type 1 diabetes mellitus was admitted to the ICU for the management of DKA and sepsis secondary to UTI. Patient moved recently from [place] and she doesn't have her medication with her. Patient was treated according to DKA and sepsis pathway and improved. Patient' s insurance doesn't cover Lantus and patient was discharged with Novolin 70/30. patient was advised to check her blood sugar and diabetic supplies scripts was given. Disposition: DC-01 TO HOME OR SELFCARE Time spent for discharge: 34 minutes - Discharge Diagnoses (1) DKA, type 1 Status: Acute (2) Sepsis Status: Acute Qualifiers: Sepsis type: sepsis due to unspecified organism Qualified Code(s): A41.9 - Sepsis, unspecified organism Core Measure Documentation - Palliative Care Palliative Care/ Comfort Measures: Not Applicable - Core Measures Any of the following diagnoses?: none Exam - Physical Exam Narrative exam: Not in cardiopulmonary distress. The patient is obese. Vital signs as documented. Head exam is unremarkable. No scleral icterus . Neck is without jugular venous distension, thyromegaly, or carotid bruits. Lungs are clear to auscultation. Cardiac exam reveals regular rate and Rhythm. First and second heart sounds normal. No murmurs, rubs or gallops. Abdominal exam reveals normal bowel sounds, no masses, no organomegaly and no aortic enlargement. Extremities are nonedematous and both femoral and pedal pulses are normal. DESIZING MACHINE BACK TENDER: Alert and oriented 3. No focal weakness. - Constitutional Vitals: Temp Pulse Resp BP Pulse Ox 98.0 F 87 20 133/73 99 10/13/17 11:13 10/13/17 11:13 10/13/17 11:13 10/13/17 11:13 10/13/17 11:13 Plan Activity: no restrictions Weight Bearing Status: Full Weight Bearing Diet: low fat, diabetic Follow up with: PRIMARY CARE,MD [Primary Care Provider] - 3-5 Days Prescriptions: Diabetic Supplies,Miscell [Fatimah Robins] 1 each MC TID #1 miscell Insulin NPH/Regular [Novolin 70/30] 30 unit SQ DAILY #3 vial Levofloxacin [Levaquin TAB] 500 mg PO QDAY #3 tablet
--- NOTE | 2017-10-13 21:54 | Consultation ---
PULMONARY/CRITICAL CARE CONSULTATION CONSULTING PHYSICIAN: Dr. Groves. REASON FOR CONSULTATION: Diabetic ketoacidosis. CHIEF COMPLAINT AND HISTORY OF PRESENT ILLNESS: The patient is a young female, 22-year-old, with a history of diabetes type 1, who came to the Emergency Room complaining of abdominal pain. She admits to me she ran out of medications at home. The abdominal pain was of moderate severity, it was crampy, it appeared to radiate to her back. She had been having nausea and vomiting for a couple of days. She denied any hematemesis. She denied any chest pains. She denied any cough or expectoration. She was evaluated in the Emergency Room and essentially found to be with hyperglycemia, uncontrolled diabetes and a suggestion of possible beginnings of diabetic ketoacidosis. She was stabilized and admitted to the regular medical floor; however, her anion gap increased. Her serum sugars continue to increase and ICU admission is requested to the beginning of IV insulin therapy and DKA protocol. When I stopped by to see her, she was lying in bed. She denied any chest pain. Abdominal pain was better. She denied any nausea, vomiting at the time I saw her. With regards to tobacco use/abuse history, she denied any history of tobacco smoking whatsoever. That really was as much of the history of presentation as I have. PAST MEDICAL HISTORY: 1. Diabetes. 2. Obesity. PAST SURGICAL HISTORY: None. MEDICATIONS: She was on at the time I stopped by to see were reviewed. Pertinent medications included the following: She was started on Rocephin at 1 gram IV 24 hours, p.r.n. Tylenol, heparin 5000 units subcutaneously q. 8 hours. She was about to begin the IV insulin drip. She was currently on a sliding scale insulin. Percocet one tablet p.o. q. 4 hours p.r.n. moderate pain. ALLERGIES: No known drug allergies. DIET: Obese lady. Denies significant weight loss or gain in the preceding few weeks to months. FAMILY AND SOCIAL HISTORY: Lives in the community. Denies alcohol, tobacco, or illicit drug use or abuse history whatsoever. Family history otherwise noncontributory. REVIEW OF SYSTEMS: Complete 13-system review of systems obtained. Pertinent positives and/or negatives as in body of history above, otherwise they are noncontributory. PHYSICAL EXAMINATION: VITAL SIGNS: At presentation in the Emergency Room, she had a low grade fever, temperature 99.2 Fahrenheit. Pulse 111, respiratory rate 16, blood pressure 146/91, oxygen sats 97%, inspired oxygen concentration was not recorded at the time. At the time I saw her, she was on room air. GENERAL: Young female, normocephalic, atraumatic, talking to me in full sentences, in mild to moderate nonrespiratory distress. HEAD, EYES, EARS, NOSE AND THROAT: She is anicteric. No conjunctival erythema. Oropharynx is Mallampati #2 oropharynx. Grossly, no palpable lymph nodes in the supraclavicular or submandibular lymph node chains. No gross jugular venous distention. Oropharynx was dry. No thyromegaly. LUNGS: Auscultation of both lung hansen unremarkable. Good bilateral air movement. HEART: Heart sounds 1 and 2 are heard. They were regular in rate and rhythm. No rubs or murmurs. ABDOMEN: Soft, full, bowel sounds are positive, but hypoactive. She was mildly tender diffusely. No palpable hepatosplenomegaly. EXTREMITIES: Without overt digital clubbing, cyanosis, or pedal edema. Dorsalis pedis pulses were palpable bilaterally. NEUROLOGIC: The pupils were equal, round, about 4 mm, reactive to light. Extraocular muscle movements were intact. She moved all 4 extremities spontaneously. The skin was of normal turgor. No cellulitis, no rash. LABORATORY DATA: From my review, white cell count 8700, hemoglobin 12.3, hematocrit 38.9, platelet count was 181. Arterial blood gas showed a pH of 7.40, pCO2 of 30, pO2 of 71 that was on room air. Serum sodium was 131, potassium 4.2, chloride 93, bicarbonate 22, BUN 9, creatinine 0.8, glucose was 327. Liver function tests essentially within normal limits. Lactic acid level was 1.6. However, as said at the time I was seeing her, her most recent blood gas, the serum bicarbonate was down to 16. Magnesium was low at 1.4. MICROBIOLOGY STUDIES: Urine cultures and blood cultures were sent and results were pending. A CT of the abdomen and pelvis was done at presentation. I have reviewed the radiologist's interpretation. Essentially no acute process. 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 ASSESSMENT: 1. Abdominal pain with nausea and vomiting. 2. Uncontrolled diabetes with developing diabetic ketoacidosis. 3. Mild metabolic acidosis. 4. Obesity. 5. History of diabetes. PLAN: We will admit her to the ICU, begin IV insulin therapy via the DKA protocol. I expect her to turn around pretty fast. She will be transitioned to long acting bronchodilators. I did go ahead to genetic counselor improved medication compliance. We will follow the cultures. In the meantime, continue empiric Rocephin therapy for possible UTI. She will be placed on GI and DVT prophylaxis. Flu and pneumonia vaccination will be addressed per protocol. Thank you very much for the consult. We will follow along. We will make further recommendations as picture progresses/becomes clearer. JOB# [id number] MARLI/SIMI
== END 2017-10-13 16:30 | disposition home or self-care (01) | DRG 871 ==
LOC: ED 16:35 → 4A 10-11 00:03 → CC1 10-11 07:28 → 3A 10-12 18:01 → UNDODISIN 10-13 14:15
PROVIDERS: ADMIT Internal Medicine; ATTEND Internal Medicine
PROC: 4A033R1 Measurement of Arterial Saturation, Peripheral, Percutaneous Approach (ICD-10-PCS; principal; 2017-10-10)
DX: A41.9 Sepsis, unspecified organism (principal); E10.10 Type 1 diabetes mellitus with ketoacidosis without coma; E86.0 Dehydration; E66.9 Obesity, unspecified; N10 Acute pyelonephritis; Z79.4 Long term (current) use of insulin; Z68.36 Body mass index [BMI] 36.0-36.9, adult
CPT/HCPCS: 36415; 74176; 80048; 80053; 81001; 81025; 82140; 82803; 82962; 83735; 84100; 85025; 87040; 87076; 87086; 87186; 96361; 96365; 96375; J0696; J1644; J1815; J2405; J3010; J3475; J7030

== ENCOUNTER 2017-12-10 20:13 | Emergency (ER) | payer SELFPAY ==
[2017-12-10 20:45] LABS: Bilirubin,Urine NEG (Negative); Blood,Urine NEG (Negative); Color,Urine Straw (Yellow); Protein,Urine <15 mg/dL mg/dL (Negative); RBC,Urine < 1.0 /HPF (0.0-6.0); Urobilinogen,Urine < 2.0 mg/dL (<2.0); WBC,Urine < 1.0 /HPF (0.0-6.0)
[2017-12-10 21:10] LABS: Basophils % (Auto) 0.5 % (0.0-1.8); Eosinophils # (Auto) 0.1 K/mm3 (0.0-0.4); Eosinophils % (Auto) 1.5 % (0.0-4.3); Hematocrit 37.6 % (30.3-42.9); Hemoglobin 11.8 gm/dl (10.1-14.3); Lymphocytes # (Auto) 2.2 K/mm3 (1.2-5.4); Lymphocytes % (Auto) 30.8 % (13.4-35.0); Mean Corpuscular HGB Conc 31 % (30-34); Mean Corpuscular Hemoglobin 22 pg (28-32); Mean Corpuscular Volume 70 fl (79-97); Monocytes # (Auto) 0.4 K/mm3 (0.0-0.8); Platelet Count 219 K/mm3 (140-440); Red Blood Count 5.37 M/mm3 (3.65-5.03); Red Cell Distribution Width 14.1 % (13.2-15.2)
[2017-12-10 21:48] LABS: Alanine Aminotransferase 8 units/L (7-56); BUN/Creatinine Ratio 9; Blood Urea Nitrogen 8 mg/dL (7-17); Calcium 9.6 mg/dL (8.4-10.2); Hemolysis Index 2; Lipase 47 units/L (13-60)
--- NOTE | 2017-12-10 23:46 | Emergency Department Report ---
ED Abdominal Pain HPI - General Chief Complaint: Abdominal Pain Stated Complaint: ABD PAIN, BODY ACHEC Time Seen by Provider: 12/10/17 23:31 Source: patient Mode of arrival: Ambulatory Limitations: No Limitations - History of Present Illness Initial Comments: Ghulam is 22 yo female with Type 1 DM who presents with 2 weeks of bilateral RLQ and LLQ pain radiating to back. MD Complaint: abdominal pain -: Gradual, week(s) (2) Location: LLQ, RLQ Radiation: none Severity: mild Worsens With: eating - Related Data Home Medications Medication Instructions Recorded Confirmed Last Taken Insulin Glargine,Hum.rec.anlog 30 units SQ QHS 10/11/17 10/11/17 Unknown [Lantus] Previous Rx's Medication Instructions Recorded Last Taken Type Diabetic Supplies,Miscell [Enlite 1 each MC TID #1 miscell 10/13/17 Unknown Rx Serter] Insulin NPH/Regular [Novolin 70/30] 30 unit SQ DAILY #3 vial 10/13/17 Unknown Rx levoFLOXacin [Levaquin TAB] 500 mg PO QDAY #3 tablet 10/13/17 Unknown Rx Allergies Allergy/AdvReac Type Severity Reaction Status Date / Time No Known Allergies Allergy Unverified 10/10/17 17:02 ED Review of Systems ROS: Stated complaint: ABD PAIN, BODY ACHEC Other details as noted in HPI Comment: All other systems reviewed and negative Constitutional: malaise. denies: fever Respiratory: denies: cough Cardiovascular: denies: chest pain ED Past Medical Hx - Past Medical History Previous Medical History?: Yes Hx Congestive Heart Failure: No Hx Diabetes: Yes Hx Asthma: No Hx COPD: No - Surgical History Past Surgical History?: Yes Additional Surgical History: c section - Social History Smoking Status: Never Smoker Substance Use Type: None - Medications Home Medications: Home Medications Medication Instructions Recorded Confirmed Last Taken Type Insulin Glargine,Hum.rec.anlog 30 units SQ QHS 10/11/17 10/11/17 Unknown History [Lantus] Diabetic Supplies,Miscell [Enlite 1 each MC TID #1 miscell 10/13/17 Unknown Rx Serter] Insulin NPH/Regular [Novolin 70/30] 30 unit SQ DAILY #3 vial 10/13/17 Unknown Rx levoFLOXacin [Levaquin TAB] 500 mg PO QDAY #3 tablet 10/13/17 Unknown Rx ED Physical Exam - General Limitations: No Limitations General appearance: alert, in no apparent distress - Head Head exam: Present: atraumatic, normocephalic - Eye Eye exam: Present: normal appearance - ENT ENT exam: Present: mucous membranes moist - Neck Neck exam: Present: normal inspection - Respiratory Respiratory exam: Present: normal lung sounds bilaterally. Absent: respiratory distress, wheezes, rales, rhonchi - Cardiovascular Cardiovascular Exam: Present: regular rate, normal rhythm, normal heart sounds. Absent: systolic murmur, diastolic murmur, rubs, gallop - GI/Abdominal GI/Abdominal exam: Present: soft, normal bowel sounds. Absent: distended, guarding, rebound - Extremities Exam Extremities exam: Present: normal inspection - Back Exam Back exam: Present: normal inspection - Neurological Exam Neurological exam: Present: alert, oriented X3 - Psychiatric Psychiatric exam: Present: normal affect, normal mood - Skin Skin exam: Present: warm, dry, intact, normal color. Absent: rash ED Course Vital Signs 12/10/17 20:28 Temperature 98.7 F Pulse Rate 99 H Respiratory 17 Rate Blood Pressure 130/87 O2 Sat by Pulse 98 Oximetry ED Medical Decision Making - Lab Data Result diagrams: 12/10/17 20:37 12/10/17 20:37 Laboratory Results - last 24 hr 12/10/17 12/10/17 12/10/17 20:30 20:37 20:37 WBC 7.0 RBC 5.37 H Hgb 11.8 Hct 37.6 MCV 70 L MCH 22 L MCHC 31 RDW 14.1 Plt Count 219 Lymph % (Auto) 30.8 [place] % (Auto) 5.0 Eos % (Auto) 1.5 Baso % (Auto) 0.5 Lymph # 2.2 [place] # 0.4 Eos # 0.1 Baso # 0.0 Seg Neutrophils % 62.2 Seg Neutrophils # 4.4 Sodium 134 L Potassium 4.4 Chloride 96.8 L Carbon Dioxide 24 Anion Gap 18 BUN 8 Creatinine 0.9 Estimated GFR > 60 BUN/Creatinine Ratio 9 Glucose 564 H* Calcium 9.6 Total Bilirubin 0.20 AST 9 ALT 8 Alkaline Phosphatase 87 Total Protein 7.4 Albumin 4.0 Albumin/Globulin Ratio 1.2 Lipase 47 HCG, Qual Urine Color Straw Urine Turbidity Clear Urine pH 5.0 Ur Specific [place] 1.030 Urine Protein <15 mg/dl Urine Glucose (UA) >=500 Urine Ketones Neg Urine Blood Neg Urine Nitrite Neg Urine Bilirubin Neg Urine Urobilinogen < 2.0 Ur Leukocyte Esterase Neg Urine WBC (Auto) < 1.0 Urine RBC (Auto) < 1.0 U Epithel Cells (Auto) 2.0 12/10/17 20:37 WBC RBC Hgb Hct MCV MCH MCHC RDW Plt Count Lymph % (Auto) [place] % (Auto) Eos % (Auto) Baso % (Auto) Lymph # [place] # Eos # Baso # Seg Neutrophils % Seg Neutrophils # Sodium Potassium Chloride Carbon Dioxide Anion Gap BUN Creatinine Estimated GFR BUN/Creatinine Ratio Glucose Calcium Total Bilirubin AST ALT Alkaline Phosphatase Total Protein Albumin Albumin/Globulin Ratio Lipase HCG, Qual Negative Urine Color Urine Turbidity Urine pH Ur Specific [place] Urine Protein Urine Glucose (UA) Urine Ketones Urine Blood Urine Nitrite Urine Bilirubin Urine Urobilinogen Ur Leukocyte Esterase Urine WBC (Auto) Urine RBC (Auto) U Epithel Cells (Auto) - Medical Decision Making Ghulam presents with 2 weeks of abdominal pain. DDX: IBS, gastroparesis, PUD , biliary colic I do not suspect PID or appendicitis, ruled out. Recommended diet changes. Patient has hyperglycemia without ketonuria. No intervention needed at this time. Critical care attestation.: If time is entered above; I have spent that time in minutes in the direct care of this critically ill patient, excluding procedure time. ED Disposition Clinical Impression: Acute generalized abdominal pain, Diabetes mellitus Disposition: DC-01 TO HOME OR SELFCARE Is pt being admited?: No Does the pt Need Aspirin: No Condition: Stable Instructions: Abdominal Pain (ED) Referrals: [facility] [Outside] - 3-5 Days Forms: Work/School Release Form(ED) Time of Disposition: 23:47
[2017-12-11 00:36] VITALS: BP 130/91
== END 2017-12-11 00:37 | disposition home or self-care (01) ==
LOC: ED 20:13
DX: R10.84 Generalized abdominal pain (principal); E11.9 Type 2 diabetes mellitus without complications; Z79.4 Long term (current) use of insulin
CPT/HCPCS: 36415; 80053; 81001; 83690; 84703; 85025; 99283

== ENCOUNTER 2017-12-13 13:02 | Emergency (ER) | payer SELFPAY ==
[2017-12-13 13:36] LABS: Basophils % (Auto) 0.6 % (0.0-1.8); Eosinophils # (Auto) 0.1 K/mm3 (0.0-0.4); Eosinophils % (Auto) 1.2 % (0.0-4.3); Hematocrit 40.7 % (30.3-42.9); Hemoglobin 12.9 gm/dl (10.1-14.3); Lymphocytes % (Auto) 23.9 % (13.4-35.0); Mean Corpuscular HGB Conc 32 % (30-34); Monocytes # (Auto) 0.5 K/mm3 (0.0-0.8); Platelet Count 221 K/mm3 (140-440); Red Blood Count 5.85 M/mm3 (3.65-5.03)
[2017-12-13 13:38] LABS: Mean Corpuscular Hemoglobin 22 pg (28-32); Mean Corpuscular Volume 70 fl (79-97)
[2017-12-13 13:45] LABS: BUN/Creatinine Ratio 12; Blood Urea Nitrogen 11 mg/dL (7-17); Calcium 9.6 mg/dL (8.4-10.2); Hemolysis Index 4
[2017-12-13] MEDS ORDERED: NACL 0.9% 1000 ML 1,000 ML IV ONE ×2 (15:29→17:24)
[2017-12-13] MEDS ORDERED: NACL 0.9% 1000 ML 1,000 ML ONE (15:34)
--- NOTE | 2017-12-13 16:27 | Emergency Department Report ---
HPI - General Chief Complaint: Hyperglycemia Time Seen by Provider: 12/13/17 16:01 - HPI HPI: 22-year-old female presents to the emergency department via EMS with a complaint of some lightheadedness, dehydration and "my sugar is high. " The patient is currently visiting here from [place] and has been without her Novolin and Lantus for at least the past 2 weeks. She says that she was walking on the street and felt very thirsty, lightheaded like she was going to pass out, and called EMS. She otherwise denies any other past medical history. She denies having a primary care physician, even back in [place]. She did not take anything or receive anything for her symptoms prior to presentation. ED Past Medical Hx - Past Medical History Hx Congestive Heart Failure: No Hx Diabetes: Yes Hx Asthma: No Hx COPD: No - Surgical History Additional Surgical History: c section - Social History Smoking Status: Current Every Day Smoker Substance Use Type: None - Medications Home Medications: Home Medications Medication Instructions Recorded Confirmed Last Taken Type Diabetic Supplies,Miscell [Enlite 1 each MC TID #1 miscell 10/13/17 Unknown Rx Serter] levoFLOXacin [Levaquin TAB] 500 mg PO QDAY #3 tablet 10/13/17 Unknown Rx Insulin NPH/Regular [NovoLIN 70/30] 30 unit SQ DAILY #3 vial 12/11/17 Unknown Rx Insulin Glargine,Hum.rec.anlog 30 units SQ QHS #1 vial 12/13/17 Unknown Rx [Lantus] Insulin NPH/Regular [NovoLIN 70/30] 15 unit SQ BID #1 vial 12/13/17 Unknown Rx Nitrofurantoin Monohyd/M-Cryst 100 mg PO BID #14 capsule 12/13/17 Unknown Rx [Macrobid 100 mg Capsule] ED Review of Systems ROS: Stated complaint: high blood sugar Other details as noted in HPI Comment: All other systems reviewed and negative Constitutional: denies: chills, fever Eyes: denies: eye pain, eye discharge, vision change ENT: denies: ear pain, throat pain Respiratory: denies: cough, shortness of breath, wheezing Cardiovascular: denies: chest pain, palpitations Endocrine: increased thirst Gastrointestinal: denies: abdominal pain, nausea, diarrhea Genitourinary: denies: urgency, dysuria, discharge Musculoskeletal: denies: back pain, joint swelling, arthralgia Skin: denies: rash, lesions Neurological: other (lightheaded). denies: headache Physical Exam - Physical Exam Vital Signs: Vital Signs 12/13/17 12/13/17 13:12 16:11 Temperature 98.9 F 98.3 F Pulse Rate 117 H 94 H Respiratory 18 18 Rate Blood Pressure 133/109 Blood Pressure 108/64 [Right] O2 Sat by Pulse 99 96 Oximetry Physical Exam: GENERAL: The patient is well-developed well-nourished. HENT: Normocephalic. Atraumatic. Patient has moist mucous membranes. EYES: Extraocular motions are intact. Pupils equal reactive to light bilaterally. NECK: Supple. Trachea is midline. CHEST/LUNGS: Clear to auscultation. There is no respiratory distress noted. HEART/CARDIOVASCULAR: Regular. There is no tachycardia. There is no murmur. ABDOMEN: Abdomen is soft, nontender. Patient has normal bowel sounds. There is no abdominal distention. SKIN: Skin is warm and dry. NEURO: The patient is awake, alert, and oriented. The patient is cooperative. The patient has no focal neurologic deficits. The patient has normal speech. MUSCULOSKELETAL: There is no tenderness or deformity. There is no limitation range of motion. There is no evidence of acute injury. ED Course Vital Signs 12/13/17 12/13/17 13:12 16:11 Temperature 98.9 F 98.3 F Pulse Rate 117 H 94 H Respiratory 18 18 Rate Blood Pressure 133/109 Blood Pressure 108/64 [Right] O2 Sat by Pulse 99 96 Oximetry ED Medical Decision Making - Lab Data Result diagrams: 12/13/17 13:23 12/13/17 13:23 - Medical Decision Making The patient presents with complaint of some lightheadedness and increased thirst and suspicion of having hyperglycemia. The patient was correct as her blood sugar was about 400. She has been about 2 weeks without taking her medications. She does not appear to have any signs of diabetic ketoacidosis as there is no elevated anion gap and she is not spilling ketones in the urine. Patient was given 2 L of IV fluid and 1 dose of insulin and her blood sugar came down to 177. Urinalysis did reveal a urinary tract infection which may be adding to her hyperglycemia or previous symptoms. Once the sugar came down, the patient was feeling improved. Is that she is returning to [place] on , in a few days. She's been given a prescription for a refill of her 70/30 insulin and her Lantus. She has been instructed to stay away from foods that are high in sugar, carbohydrates and starches. Indication is unable to get back to [place] in a reasonable amount of time, the patient has been given referrals for primary care physicians and clinics in the area. She's been instructed to return to the ER with any worsening of her symptoms or any acute distress. She understands and agrees to the plan. Prior to discharge, the patient was ambulatory in the emergency department and appeared stable. - Differential Diagnosis DKA, HHNK, UTI Critical Care Time: No Critical care attestation.: If time is entered above; I have spent that time in minutes in the direct care of this critically ill patient, excluding procedure time. ED Disposition Clinical Impression: Noncompliance with medication regimen, Hyperglycemia due to type 1 diabetes mellitus Diabetes mellitus Qualifiers: Diabetes mellitus type: type 1 Diabetes mellitus complication status: with hyperglycemia Qualified Code(s): E10.65 - Type 1 diabetes mellitus with hyperglycemia UTI (urinary tract infection) Qualifiers: Urinary tract infection type: acute cystitis Hematuria presence: without hematuria Qualified Code(s): N30.00 - Acute cystitis without hematuria Disposition: TO HOME OR SELFCARE Is pt being admited?: No Condition: Stable Instructions: Urinary Tract Infection in Women (ED), Diabetic Hyperglycemia (ED ) Additional Instructions: Please follow-up with your primary care physician when you return to [place]. Just in case, I'm getting a referral for some local primary care physicians and clinics. I am prescribing you a refill of your insulin. Please check your blood sugar regularly and keep a blood sugar log. Try and stay away from foods that are high in sugar, carbohydrates and starches. Return to the emergency department immediately with any worsening of your symptoms or any acute distress. Prescriptions: Insulin Glargine,Hum.rec.anlog [Lantus] 30 units SQ QHS #1 vial Insulin NPH/Regular [NovoLIN 70/30] 15 unit SQ BID #1 vial Nitrofurantoin Monohyd/M-Cryst [Macrobid 100 mg Capsule] 100 mg PO BID #14 capsule Referrals: TYREL RIGGS MD [Staff Physician] - 2-3 Days [facility] [Outside] - 2-3 Days Time of Disposition: 19:45
[2017-12-13] MEDS ORDERED: HumuLIN R IV ONE (17:23)
[2017-12-13 17:50] LABS: Bilirubin,Urine NEG (Negative); Blood,Urine NEG (Negative); Color,Urine Yellow (Yellow); Mucus,Urine FEW /HPF; Urobilinogen,Urine < 2.0 mg/dL (<2.0)
[2017-12-13] MEDS ORDERED: MACROBID PO ONE (18:20)
[2017-12-13 19:36] VITALS: BP 112/83
== END 2017-12-13 20:23 | disposition home or self-care (01) ==
LOC: ED 13:02
DX: E11.65 Type 2 diabetes mellitus with hyperglycemia (principal); N30.00 Acute cystitis without hematuria
CPT/HCPCS: 36415; 80048; 81001; 82805; 82962; 84703; 85025; 96361; 96374; 99284; J7030; J1815

== ENCOUNTER 2019-10-02 14:39 | Emergency (ER) | payer SELFPAY ==
[2019-10-02 15:26] VITALS: BP 115/80
--- NOTE | 2019-10-02 17:04 | Event Note ---
ED Screening Note ED Screening Note: pt presents to the ED with c/o SOB that began a week ago states she has n/v/d +cough PMHx DM and one kidney This initial assessment/diagnostic orders/clinical plan/treatment(s) is/are subject to change based on patients health status, clinical progression and re- assessment by fellow clinical providers in the ED. Further treatment and workup at subsequent clinical providers discretion. Patient/guardian urged not to elope from the ED as their condition may be serious if not clinically assessed and man aged. Initial orders include: labs, CXR, UA
[2019-10-02 17:49] LABS: Basophils % (Auto) 0.4 % (0.0-1.8); Eosinophils % (Auto) 0.3 % (0.0-4.3); Hematocrit 38.6 % (30.3-42.9); Hemoglobin 11.9 gm/dl (10.1-14.3); Lymphocytes # (Auto) 1.8 K/mm3 (1.2-5.4); Mean Corpuscular HGB Conc 31 % (30-34); Monocytes # (Auto) 0.4 K/mm3 (0.0-0.8); Monocytes % (Auto) 6.3 % (0.0-7.3); Platelet Count 223 K/mm3 (140-440); Red Blood Count 5.56 M/mm3 (3.65-5.03); Red Cell Distribution Width 14.2 % (13.2-15.2)
[2019-10-02 17:55] LABS: Mean Corpuscular Volume 70 fl (79-97)
[2019-10-02 18:11] LABS: Alanine Aminotransferase 10 units/L (7-56); Albumin 3.9 g/dL (3.9-5); BUN/Creatinine Ratio 9; Blood Urea Nitrogen 6 mg/dL (7-17); Calcium 9.4 mg/dL (8.4-10.2); Hemolysis Index 3
--- NOTE | 2019-10-02 18:29 | XRay Report ---
CHEST 2 VIEWS INDICATION: sob. COMPARISON: None FINDINGS: SUPPORT DEVICES: None. HEART: Within normal limits. LUNGS/PLEURA: No acute air space or interstitial disease. No pneumothorax. ADDITIONAL FINDINGS: None. IMPRESSION: 1. No acute findings. Signer Name: Otto Browning MD Signed: 10/02/2019 6:24 PM Workstation Name: [id number]
[2019-10-02 19:39] LABS: Bacteria,Urine 2+ /HPF (Negative); Bilirubin,Urine NEG (Negative); Blood,Urine MOD (Negative); Color,Urine Yellow (Yellow); Mucus,Urine FEW /HPF; Urobilinogen,Urine < 2.0 mg/dL (<2.0)
[2019-10-02] MEDS ORDERED: ONDANSETRON 4 MG/2 ML INJ IV ONE (19:49)
[2019-10-02] MEDS ORDERED: SODIUM CHLORIDE 0.9% 1000 ML 1,000 ML IV ONE ×2 (19:49→23:58)
[2019-10-02] MEDS ORDERED: KETOROLAC 30 MG/1 ML INJ IV ONE (19:49)
[2019-10-02] MEDS ORDERED: INSULIN REGULAR, HUMAN 100 UNITS/1 ML IV ONE ×3 (19:49→23:57)
[2019-10-02] MEDS ORDERED: CLINDAMYCIN 300 MG CAP PO ONE (19:49)
[2019-10-02] MEDS ORDERED: LACTATED RINGERS 1,000 ML IV ONE (19:49)
[2019-10-02] MEDS ORDERED: cefTRIAXone/NS 1 GM/50 ML 1 GM/50 ML BAG IV ONE (19:49)
--- NOTE | 2019-10-02 21:02 | Emergency Department Report ---
ED General Adult HPI - General Chief complaint: Pain General Stated complaint: SOB/BOIL ON BACK/WEAK/N/V Time Seen by Provider: 10/02/19 16:58 Source: patient Mode of arrival: Wheelchair Limitations: No Limitations - History of Present Illness Initial comments: Patient is a 24-year-old -[place] female with a history of insulin- dependent diabetes who presents to the ED with complaint of acute onset persistent diffuse body aches and pains, nausea and vomiting intermittently, shortness of breath, dry cough and swollen painful rash on lower back for the last 1 week, worse in the last 2 days. Patient states that in the last 12 hours she has not been able to keep anything down because of persistent nausea and vomiting. Patient denies fever, chills, dizziness, syncope, abdominal pain, headache, chest pain, change in vision, dysuria, urinary frequency and urgency, vaginal bleeding, vaginal discharge, numbness and tingling or weakness of lower and upper extremities bilaterally, urinary or bowel incontinence and saddle paresthesia, traumatic injury or fall. MD Complaint: Body aches; Nausea, vomiting, diarrhea; swollen rash on lower back -: Sudden, week(s) (1) Location: back, abdomen Radiation: non-radiation Severity scale (0 -10): 6 Quality: aching, sharp Consistency: intermittent Improves with: none Worsens with: none Associated Symptoms: denies other symptoms, cough, loss of appetite, malaise, nausea/vomiting, rash (lower back). denies: confusion, chest pain, diaphoresis, fever/chills, headaches, seizure, shortness of breath, syncope, weakness Treatments Prior to Arrival: none - Related Data Previous Rx's Medication Instructions Recorded Last Taken Type Diabetic Supplies,Miscell [Enlite 1 each MC TID #1 miscell 10/13/17 Unknown Rx Serter] levoFLOXacin [Levaquin TAB] 500 mg PO QDAY #3 tablet 10/13/17 Unknown Rx Insulin NPH/Regular [NovoLIN 70/30] 30 unit SQ DAILY #3 vial 12/11/17 Unknown Rx Insulin Glargine,Hum.rec.anlog 30 units SQ QHS #1 vial 12/13/17 Unknown Rx [Lantus] Insulin NPH/Regular [NovoLIN 70/30] 15 unit SQ BID #1 vial 12/13/17 Unknown Rx Nitrofurantoin Monohyd/M-Cryst 100 mg PO BID #14 capsule 12/13/17 Unknown Rx [Macrobid 100 mg Capsule] Famotidine [Pepcid] 20 mg PO BID #30 tablet 10/02/19 Unknown Rx Ibuprofen [Motrin] 800 mg PO Q8HR PRN #30 tablet 10/02/19 Unknown Rx Ondansetron [Zofran Odt] 4 mg PO Q6HR PRN #20 tab.rapdis 10/02/19 Unknown Rx Sulfamethoxazole/Trimethoprim 1 each PO Q12H #20 tablet 10/02/19 Unknown Rx [Bactrim DS TAB] Allergies Allergy/AdvReac Type Severity Reaction Status Date / Time No Known Allergies Allergy Verified 10/02/19 15:21 ED Review of Systems ROS: Stated complaint: SOB/BOIL ON BACK/WEAK/N/V Other details as noted in HPI Constitutional: malaise. denies: chills, fever Eyes: denies: eye pain, eye discharge, vision change ENT: congestion. denies: ear pain, throat pain Respiratory: cough, shortness of breath. denies: wheezing Cardiovascular: denies: chest pain, palpitations, syncope Endocrine: no symptoms reported Gastrointestinal: nausea, vomiting, diarrhea. denies: abdominal pain Genitourinary: denies: urgency, dysuria, discharge Musculoskeletal: back pain (Lower back pain). denies: joint swelling, arthralgia Skin: rash (Painful swollen mildly erythematous maculopapular rash on lower back), change in color. denies: lesions Neurological: denies: headache, weakness, paresthesias Psychiatric: denies: anxiety, depression Hematological/Lymphatic: denies: easy bleeding, easy bruising ED Past Medical Hx - Past Medical History Hx Congestive Heart Failure: No Hx Diabetes: Yes Hx Asthma: No Hx COPD: No - Surgical History Additional Surgical History: c section/ ABSCESS ON BUTT 4 WEEKS AGO - Social History Smoking Status: Never Smoker Substance Use Type: None - Medications Home Medications: Home Medications Medication Instructions Recorded Confirmed Last Taken Type Diabetic Supplies,Miscell [Enlite 1 each MC TID #1 miscell 10/13/17 Unknown Rx Serter] levoFLOXacin [Levaquin TAB] 500 mg PO QDAY #3 tablet 10/13/17 Unknown Rx Insulin NPH/Regular [NovoLIN 70/30] 30 unit SQ DAILY #3 vial 12/11/17 Unknown Rx Insulin Glargine,Hum.rec.anlog 30 units SQ QHS #1 vial 12/13/17 Unknown Rx [Lantus] Insulin NPH/Regular [NovoLIN 70/30] 15 unit SQ BID #1 vial 12/13/17 Unknown Rx Nitrofurantoin Monohyd/M-Cryst 100 mg PO BID #14 capsule 12/13/17 Unknown Rx [Macrobid 100 mg Capsule] Famotidine [Pepcid] 20 mg PO BID #30 tablet 10/02/19 Unknown Rx Ibuprofen [Motrin] 800 mg PO Q8HR PRN #30 tablet 10/02/19 Unknown Rx Ondansetron [Zofran Odt] 4 mg PO Q6HR PRN #20 tab.rapdis 10/02/19 Unknown Rx Sulfamethoxazole/Trimethoprim 1 each PO Q12H #20 tablet 10/02/19 Unknown Rx [Bactrim DS TAB] ED Physical Exam - General Limitations: No Limitations General appearance: alert, in no apparent distress - Head Head exam: Present: atraumatic, normocephalic, normal inspection - Eye Eye exam: Present: normal appearance, PERRL, EOMI Pupils: Present: normal accommodation - ENT ENT exam: Present: normal exam, normal orophraynx, mucous membranes moist, TM's normal bilaterally, normal external ear exam - Neck Neck exam: Present: normal inspection, full ROM - Respiratory Respiratory exam: Present: normal lung sounds bilaterally. Absent: respiratory distress, wheezes, rales, rhonchi, chest wall tenderness, accessory muscle use, decreased breath sounds, prolonged expiratory - Cardiovascular Cardiovascular Exam: Present: normal rhythm, tachycardia, normal heart sounds. Absent: systolic murmur, diastolic murmur, rubs, gallop - GI/Abdominal GI/Abdominal exam: Present: soft, normal bowel sounds. Absent: tenderness, guarding, rebound, hyperactive bowel sounds, organomegaly - Extremities Exam Extremities exam: Present: normal inspection, full ROM, normal capillary refill - Back Exam Back exam: Present: normal inspection, full ROM, tenderness, other (Mildly swollen, tender mildly erythematous maculopapular rash on lumbosacral area). Absent: CVA tenderness (R), muscle spasm, paraspinal tenderness, vertebral tenderness - Neurological Exam Neurological exam: Present: alert, oriented X3, CN II-XII intact, normal gait, reflexes normal - Psychiatric Psychiatric exam: Present: normal affect, normal mood - Skin Skin exam: Present: warm, dry, intact, normal color, rash (Mildly erythematous, mildly swollen, mildly tender maculopapular rash on lumbosacral area), erythema ED Course Vital Signs 10/02/19 10/02/19 10/02/19 15:25 16:59 17:01 Temperature 98.8 F 98.9 F Pulse Rate 110 H 103 H Respiratory 20 18 Rate Blood Pressure 115/80 O2 Sat by Pulse 98 99 100 Oximetry 10/02/19 20:30 Temperature Pulse Rate Respiratory 18 Rate Blood Pressure O2 Sat by Pulse Oximetry ED Medical Decision Making - Lab Data Result diagrams: 10/02/19 17:14 10/02/19 17:14 - Radiology Data Radiology results: report reviewed Chest x-ray shows no acute cardiopulmonary abnormalities or pneumonitis. - Medical Decision Making This is a 24-year-old -[place] female with a history of insulin- dependent diabetes who presents to the ED with complaint of acute onset persistent diffuse body aches and pains, nausea and vomiting intermittently, s hortness of breath, dry cough and swollen painful rash on lower back for the last 1 week, worse in the last 2 days. Patient states that in the last 12 hours she has not been able to keep anything down because of persistent nausea and vomiting. In the ED, patient is alert and oriented x3 and is not in distress but tachycardic and afebrile in triage. Chest x-ray shows no acute cardiopulmonary abnormalities or pneumonitis. Lab test results are nonactionable except for hyperglycemia of 386 mg/dL, hyponatremia of 134 mmol/L and hypochloremia of 94.4 mmol/L. Urinalysis shows significant urinary tract infection characterized by large leukocyte esterase and >148 WBCs, 2+ bacteriuria and 1+ budding yeast. Patient received normal saline bolus 1 L IV x1, LR 1 L bolus IV x1, Rocephin 1 g IV x1, Toradol 30 mg IV x1 and clindamycin 300 mg p.o. x1 as well as antiemetics. Patient also received insulin 9 units IV x1. On reevaluation, patient's pain is well controlled with medications, but the hyperglycemia has not improved significantly with medications. Additional normal saline 1 L IV fluid was ordered as well as insulin. The patient declined any further treatment in the ED and signed out AMA from the ED despite being advised against leaving the hospital AMA. At the time of the patient's leaving the ED her blood sugar was 363 mg/dL. - Differential Diagnosis Hyperglycemia; UTI; Pneumonia; DKA; Dehydration Critical care attestation.: If time is entered above; I have spent that time in minutes in the direct care of this critically ill patient, excluding procedure time. ED Disposition Clinical Impression: Nausea and vomiting in adult, Hyperglycemia due to type 1 diabetes mellitus, Acute urinary tract infection, Acute folliculitis Disposition: LEFT AGAINST MED ADVICE Is pt being admited?: No Does the pt Need Aspirin: No Condition: Stable Instructions: Urinary Tract Infection in Women (ED), Diabetes Mellitus Type 1 in Adults (ED), Acute Nausea and Vomiting (ED), Folliculitis (ED) Additional Instructions: Take medications with food, drink plenty of fluids and follow-up with your primary care physician in 7 to 10 days for reevaluation. Return to the ED immediately if symptoms get worse. Prescriptions: Sulfamethoxazole/Trimethoprim [Bactrim DS TAB] 1 each PO Q12H #20 tablet Ibuprofen [Motrin] 800 mg PO Q8HR PRN #30 tablet PRN Reason: Pain , Severe (7-10) Famotidine [Pepcid] 20 mg PO BID #30 tablet Ondansetron [Zofran Odt] 4 mg PO Q6HR PRN #20 tab.rapdis PRN Reason: Nausea Referrals: [facility] [Provider Group] - 7-10 days Forms: AMA Form Time of Disposition: 21:13 Print Language: SCOTTISH
[2019-10-03] MEDS ORDERED: SODIUM CHLORIDE 0.9% 1000 ML 0 ML ONE
== END 2019-10-03 00:01 | disposition left against medical advice (07) ==
LOC: ED 14:39
DX: E10.65 Type 1 diabetes mellitus with hyperglycemia (principal); R11.2 Nausea with vomiting, unspecified; N39.0 Urinary tract infection, site not specified; L73.9 Follicular disorder, unspecified; E11.9 Type 2 diabetes mellitus without complications
CPT/HCPCS: 36415; 71046; 80053; 81001; 82805; 82962; 84703; 85025; 96365; 96366; 96375; 99284; J0696; J1885; J2405; J7030; J7120; J1815

== ENCOUNTER 2019-10-06 02:49 | Emergency (ER) | payer SELFPAY ==
--- NOTE | 2019-10-06 12:11 | Emergency Department Report ---
- General Chief complaint: Hyperglycemia Stated complaint: ABSCESS ON BACK Time Seen by Provider: 10/06/19 12:07 Source: patient Mode of arrival: Ambulatory Limitations: No Limitations - History of Present Illness Initial comments: 24-year-old obese -[place] female presents emergency department complaining of abscess to her lower back which is tender and in nature cyst se eking treatment here in the emergency department. States she has had this previously to various areas of her back or her body and once in the same location but this 1 did not resolve on its own like usual. States she also thinks she has urinary tract infection which she would like to have treated as well. She reports no hemoptysis no hematemesis no hematochezia. MD complaint: abscess/boil -: Sudden Location: back Severity: moderate Quality: dull Consistency: constant Worsens with: palpation Associated symptoms: denies other symptoms - Related Data Previous Rx's Medication Instructions Recorded Last Taken Type Diabetic Supplies,Miscell [Enlite 1 each MC TID #1 miscell 10/13/17 Unknown Rx Serter] levoFLOXacin [Levaquin TAB] 500 mg PO QDAY #3 tablet 10/13/17 Unknown Rx Insulin NPH/Regular [NovoLIN 70/30] 30 unit SQ DAILY #3 vial 12/11/17 Unknown Rx Insulin Glargine,Hum.rec.anlog 30 units SQ QHS #1 vial 12/13/17 Unknown Rx [Lantus] Insulin NPH/Regular [NovoLIN 70/30] 15 unit SQ BID #1 vial 12/13/17 Unknown Rx Nitrofurantoin Monohyd/M-Cryst 100 mg PO BID #14 capsule 12/13/17 Unknown Rx [Macrobid 100 mg Capsule] Famotidine [Pepcid] 20 mg PO BID #30 tablet 10/02/19 Unknown Rx Ibuprofen [Motrin] 800 mg PO Q8HR PRN #30 tablet 10/02/19 Unknown Rx Ondansetron [Zofran Odt] 4 mg PO Q6HR PRN #20 tab.rapdis 10/02/19 Unknown Rx Sulfamethoxazole/Trimethoprim 1 each PO Q12H #20 tablet 10/02/19 Unknown Rx [Bactrim DS TAB] Chlorhexidine Gluconate 5 ml TP BID #240 liquid 10/06/19 Unknown Rx [Antiseptic Skin Cleanser] Sulfamethoxazole/Trimethoprim 1 each PO BID #20 tablet 10/06/19 Unknown Rx [Bactrim DS TAB] cephALEXin [Keflex] 500 mg PO Q6HR #40 capsule 10/06/19 Unknown Rx Allergies Allergy/AdvReac Type Severity Reaction Status Date / Time No Known Allergies Allergy Verified 10/02/19 15:21 Abscess Boil HPI - HPI Chief Complaint: Hyperglycemia Stated Complaint: ABSCESS ON BACK Time Seen by Provider: 10/06/19 12:07 Home Medications: Previous Rx's Medication Instructions Recorded Last Taken Type Diabetic Supplies,Miscell [Enlite 1 each MC TID #1 miscell 10/13/17 Unknown Rx Serter] levoFLOXacin [Levaquin TAB] 500 mg PO QDAY #3 tablet 10/13/17 Unknown Rx Insulin NPH/Regular [NovoLIN 70/30] 30 unit SQ DAILY #3 vial 12/11/17 Unknown Rx Insulin Glargine,Hum.rec.anlog 30 units SQ QHS #1 vial 12/13/17 Unknown Rx [Lantus] Insulin NPH/Regular [NovoLIN 70/30] 15 unit SQ BID #1 vial 12/13/17 Unknown Rx Nitrofurantoin Monohyd/M-Cryst 100 mg PO BID #14 capsule 12/13/17 Unknown Rx [Macrobid 100 mg Capsule] Famotidine [Pepcid] 20 mg PO BID #30 tablet 10/02/19 Unknown Rx Ibuprofen [Motrin] 800 mg PO Q8HR PRN #30 tablet 10/02/19 Unknown Rx Ondansetron [Zofran Odt] 4 mg PO Q6HR PRN #20 tab.rapdis 10/02/19 Unknown Rx Sulfamethoxazole/Trimethoprim 1 each PO Q12H #20 tablet 10/02/19 Unknown Rx [Bactrim DS TAB] Chlorhexidine Gluconate 5 ml TP BID #240 liquid 10/06/19 Unknown Rx [Antiseptic Skin Cleanser] Sulfamethoxazole/Trimethoprim 1 each PO BID #20 tablet 10/06/19 Unknown Rx [Bactrim DS TAB] cephALEXin [Keflex] 500 mg PO Q6HR #40 capsule 10/06/19 Unknown Rx Allergies/Adverse Reactions: Allergies Allergy/AdvReac Type Severity Reaction Status Date / Time No Known Allergies Allergy Verified 10/02/19 15:21 ED Review of Systems ROS: Stated complaint: ABSCESS ON BACK Other details as noted in HPI Comment: All other systems reviewed and negative ED Past Medical Hx - Past Medical History Previous Medical History?: Yes Hx Congestive Heart Failure: No Hx Diabetes: Yes Hx Asthma: No Hx COPD: No - Surgical History Past Surgical History?: Yes Additional Surgical History: c section/ ABSCESS ON BUTT 4 WEEKS AGO - Social History Smoking Status: Former Smoker Substance Use Type: None - Medications Home Medications: Home Medications Medication Instructions Recorded Confirmed Last Taken Type Diabetic Supplies,Miscell [Enlite 1 each MC TID #1 miscell 10/13/17 Unknown Rx Serter] levoFLOXacin [Levaquin TAB] 500 mg PO QDAY #3 tablet 10/13/17 Unknown Rx Insulin NPH/Regular [NovoLIN 70/30] 30 unit SQ DAILY #3 vial 12/11/17 Unknown Rx Insulin Glargine,Hum.rec.anlog 30 units SQ QHS #1 vial 12/13/17 Unknown Rx [Lantus] Insulin NPH/Regular [NovoLIN 70/30] 15 unit SQ BID #1 vial 12/13/17 Unknown Rx Nitrofurantoin Monohyd/M-Cryst 100 mg PO BID #14 capsule 12/13/17 Unknown Rx [Macrobid 100 mg Capsule] Famotidine [Pepcid] 20 mg PO BID #30 tablet 10/02/19 Unknown Rx Ibuprofen [Motrin] 800 mg PO Q8HR PRN #30 tablet 10/02/19 Unknown Rx Ondansetron [Zofran Odt] 4 mg PO Q6HR PRN #20 tab.rapdis 10/02/19 Unknown Rx Sulfamethoxazole/Trimethoprim 1 each PO Q12H #20 tablet 10/02/19 Unknown Rx [Bactrim DS TAB] Chlorhexidine Gluconate 5 ml TP BID #240 liquid 10/06/19 Unknown Rx [Antiseptic Skin Cleanser] Sulfamethoxazole/Trimethoprim 1 each PO BID #20 tablet 10/06/19 Unknown Rx [Bactrim DS TAB] cephALEXin [Keflex] 500 mg PO Q6HR #40 capsule 10/06/19 Unknown Rx ED Physical Exam - General Limitations: No Limitations General appearance: alert, in no apparent distress - Head Head exam: Present: atraumatic, normocephalic - Eye Eye exam: Present: normal appearance, PERRL, EOMI Pupils: Present: normal accommodation - ENT ENT exam: Present: normal exam, normal orophraynx, mucous membranes moist - Neck Neck exam: Present: normal inspection, full ROM - Respiratory Respiratory exam: Present: normal lung sounds bilaterally. Absent: respiratory distress, wheezes, rales, chest wall tenderness, accessory muscle use - Cardiovascular Cardiovascular Exam: Present: regular rate, normal rhythm. Absent: systolic murmur, diastolic murmur, rubs, gallop - GI/Abdominal GI/Abdominal exam: Present: soft, normal bowel sounds - Extremities Exam Extremities exam: Present: normal inspection - Back Exam Back exam: Present: normal inspection - Neurological Exam Neurological exam: Present: alert, oriented X3 - Psychiatric Psychiatric exam: Present: normal affect, normal mood - Skin Skin exam: Present: warm, dry, other (Indurated abscess to the lower lumbar region with some local cellulitis minimal fluctuance. No lymphangitis noted. Tenderness to touch. No wound discharge on expression.). Absent: rash ED Course Vital Signs 10/06/19 02:57 Temperature 97.9 F Pulse Rate 104 H Respiratory 20 Rate Blood Pressure 129/100 O2 Sat by Pulse 99 Oximetry - Procedure Description Procedures done: PRE-OP DIAGNOSIS: Lower back abscess. POST-OP DIAGNOSIS: Same. PROCEDURE: incision and drainage of abscess. Performing Physician/advanced practice provider: Kel Sotomayor_. . PROCEDURE: A timeout protocol was performed prior to initiating the procedure. The area was prepared and draped in the usual, sterile manner. The site was anesthetized with 2% lidocaine without epinephrine. A linear incision was along the local skin lines was made and the purulent material expressed. The abcess was explored thoroughly and sequestered pockets were opened. Wound was irrigated with normal saline and bleeding was minimal. Packing: None. . Followup: The patient tolerated the procedure well without complications. Standard post-procedure care is explained and return precautions are given. Critical care attestation.: If time is entered above; I have spent that time in minutes in the direct care of this critically ill patient, excluding procedure time. ED Disposition Clinical Impression: Abscess, Encounter for incision and drainage procedure Disposition: TO HOME OR SELFCARE Is pt being admited?: No Does the pt Need Aspirin: No Condition: Stable Instructions: Abscess (ED), Abscess Incision and Drainage (ED) Prescriptions: Chlorhexidine Gluconate [Antiseptic Skin Cleanser] 5 ml TP BID #240 liquid Sulfamethoxazole/Trimethoprim [Bactrim DS TAB] 1 each PO BID #20 tablet cephALEXin [Keflex] 500 mg PO Q6HR #40 capsule Referrals: [facility] [Provider Group] - 2-3 Days PRIMARY [facility], [Primary Care Provider] - 2-3 Days
[2019-10-06 15:52] VITALS: BP 115/78
== END 2019-10-06 15:50 | disposition home or self-care (01) ==
LOC: ED 02:49
DX: L02.212 Cutaneous abscess of back [any part, except buttock and flank] (principal); E11.9 Type 2 diabetes mellitus without complications; Z79.899 Other long term (current) drug therapy
CPT/HCPCS: 82962; 99282